=== PATIENT | male | born 1980 | race African-American/Black ===

== ENCOUNTER 2016-08-26 11:19 | Observation (INO) | payer MEDICARE, OTHER ==
[~2016-08-26] VITALS: Ht 180.3 cm; Wt 135.0 kg
[2016-08-26] VITALS (11 sets, daily range): BP systolic 162–222; BP diastolic 92–133; PULSE 68–85; RESP 16–22; TEMP 97.5–98.3; O2SAT 95–100
[~2016-08-26 11:19] MED LIST: Z.0.NO CURRENT MEDS
[2016-08-26] MEDS ORDERED: SODIUM CHLORIDE 0.9% FLUSH 10 ML FLUSH IVF PRN (12:00)
[2016-08-26] MEDS ORDERED: ASPIRIN 81 MG CHEW TAB PO ONE (12:00)
[2016-08-26] MEDS ORDERED: MORPHINE SULFATE 4 MG/ML INJ IV PUSH ONE (12:00)
[2016-08-26] MEDS ORDERED: NITROGLYCERIN 0.4 MG SL 25 TABS/BTL SL SCH (12:00)
--- NOTE | 2016-08-26 12:49 | PD ---
HPI . Chest pain Chief Complaint: Chest Pain Time Seen by Provider: 11:54 Travel History International Travel<30 days: No Contact w/Intl Traveler<30days: No Traveled to known affect area: No History of Present Illness HPI Patient presents with chest pain which started 30 minutes prior to presentation. He states that it awakened him from sleep. He describes a sharp , constant pain. It is associated with nausea. He denies any exacerbating or relieving factors. He states that the pain is 9/10. Patient reports that the pain is the same as pain that he has had in the past when he needed to have stents. He states that he has had stents placed 2. PFSH Past Medical History Hx Anticoagulant Therapy: Yes (plavix) Cardiovascular Problems: Yes (stents ) Myocardial Infarction: Yes Sleep Apnea: Yes Influenza Vaccination: No Past Surgical History Cardiac Surgery: Yes (2 CARDIAC STENTS) Other Surgery: Yes (LOBECTOMY) Social History Alcohol Use: No Tobacco Use: No Substance Use: No Allergies-Medications (Allergen,Severity, Reaction): Coded Allergies: Nitroglycerin (Verified Allergy, Severe, ANAPHYLAXIS, 08/26/16) Hydralazine (Verified Allergy, Intermediate, WHEEZING, 08/26/16) Lyrica (Verified Allergy, Intermediate, WHEEZING, 08/26/16) Reported Meds & Prescriptions Reported Meds & Active Scripts Active Reported Simvastatin 40 Mg Tab 40 Mg PO HS Lisinopril 40 Mg Tab 40 Mg PO DAILY Clonidine (Clonidine HCl) 0.2 Mg Tab 0.2 Mg PO BID Plavix (Clopidogrel Bisulfate) 75 Mg Tab 75 Mg PO DAILY Aspirin Low Dose (Aspirin) 81 Mg Chew 81 Mg CHEW DAILY Coreg (Carvedilol) 25 Mg Tab 25 Mg PO BID Review of Systems Except as stated in HPI: all other systems reviewed are Neg Cardiovascular: Positive: Chest Pain or Discomfort Respiratory: No: Shortness of Breath Gastrointestinal: Positive: Nausea Skin: Positive Other (no diaphoresis) Neurologic: No: Dizziness Physical Exam Narrative GENERAL: Healthy-appearing man in no acute distress. SKIN: Warm and dry. HEAD: Atraumatic. Normocephalic. EYES: Pupils equal and round. ENT: No nasal bleeding or discharge. Mucous membranes pink and moist. NECK: Trachea midline. Neck is supple. CARDIOVASCULAR: Regular rate and rhythm. Heart sounds are normal. RESPIRATORY: No accessory muscle use. Lungs are clear with full air movement throughout. Chest wall is nontender. GASTROINTESTINAL: Abdomen soft, non-tender, nondistended. MUSCULOSKELETAL: No obvious deformities. No edema. NEUROLOGICAL: Awake and alert. No obvious cranial nerve deficits. Motor grossly within normal limits. Normal speech. PSYCHIATRIC: Appropriate mood and affect; insight and judgment normal. Data Data Last Documented VS Vital Signs Date Time Temp Pulse Resp B/P Pulse Ox O2 Delivery O2 Flow Rate FiO2 08/26/16 14:09 71 18 191/125 98 08/26/16 13:05 Nasal Cannula 2 08/26/16 11:31 97.7 Orders Electrocardiogram (08/26/16 11:23) Complete Blood Count With Diff (08/26/16 11:23) Basic Metabolic Panel (Bmp) (08/26/16 11:23) Ckmb (Isoenzyme) Profile (08/26/16 11:23) Troponin I (08/26/16 11:23) Basic Metabolic Panel (Bmp) (08/26/16 11:54) Ckmb (Isoenzyme) Profile (08/26/16 11:54) Magnesium (Mg) (08/26/16 11:54) Prothrombin Time / Inr (Pt) (08/26/16 11:54) Act Partial Throm Time (Ptt) (08/26/16 11:54) Troponin I (08/26/16 11:54) Chest, Single Ap (08/26/16 11:54) Ecg Monitoring (08/26/16 11:54) Bilateral Bp Monitoring (08/26/16 11:54) Iv Access Insert/Monitor (08/26/16 11:54) Oximetry (08/26/16 11:54) Oxygen Administration (08/26/16 11:54) Aspirin Chew (Aspirin Chew) (08/26/16 12:00) Sodium Chloride 0.9% Flush (Ns Flush) (08/26/16 12:00) Nitroglycerin Sl (Nitrostat Sl) (08/26/16 12:00) Morphine Inj (Morphine Inj) (08/26/16 12:00) Metoprolol Tartrate Inj (Lopressor Inj) (08/26/16 12:00) Vascular Access Team Consult PRN (08/26/16 12:31) Vascular Poc Ultrasound (08/26/16 ) Electrocardiogram (08/26/16 ) Morphine Inj (Morphine Inj) (08/26/16 14:00) CKMB (08/26/16 13:10) CKMB% (08/26/16 13:10) Labs Laboratory Tests Test 08/26/16 13:10 White Blood Count 7.9 TH/MM3 Red Blood Count 5.37 MIL/MM3 Hemoglobin 13.5 GM/DL Hematocrit 41.2 % Mean Corpuscular Volume 76.7 FL Mean Corpuscular Hemoglobin 25.2 PG Mean Corpuscular Hemoglobin 32.9 % Concent Red Cell Distribution Width 16.6 % Platelet Count 285 TH/MM3 Mean Platelet Volume 8.0 FL Neutrophils (%) (Auto) 81.3 % Lymphocytes (%) (Auto) 12.1 % Monocytes (%) (Auto) 4.7 % Eosinophils (%) (Auto) 1.4 % Basophils (%) (Auto) 0.5 % Neutrophils # (Auto) 6.5 TH/MM3 Lymphocytes # (Auto) 1.0 TH/MM3 Monocytes # (Auto) 0.4 TH/MM3 Eosinophils # (Auto) 0.1 TH/MM3 Basophils # (Auto) 0.0 TH/MM3 CBC Comment DIFF FINAL Differential Comment Prothrombin Time 9.8 SEC Prothromb Time International 0.9 RATIO Ratio Activated Partial 28.6 SEC Thromboplast Time Sodium Level 139 MEQ/L Potassium Level 4.6 MEQ/L Chloride Level 103 MEQ/L Carbon Dioxide Level 29.1 MEQ/L Anion Gap 7 MEQ/L Blood Urea Nitrogen 16 MG/DL Creatinine 1.76 MG/DL Estimat Glomerular Filtration 53 ML/MIN Rate Random Glucose 117 MG/DL Calcium Level 9.5 MG/DL Magnesium Level 2.1 MG/DL Total Creatine Kinase 243 U/L Creatine Kinase MB 1.8 NG/ML Troponin I LESS THAN 0.02 NG/ML MDM Medical Decision Making Medical Screen Exam Complete: Yes Emergency Medical Condition: Yes Medical Record Reviewed: Yes (patient was evaluated here in 2008. He had an ejection fraction of 60-65% by echo. He had a Holter monitor that showed sinus tachycardia with no ventricular ectopy.) Interpretation(s) EKG shows a sinus rhythm with a rate of 85. He does have a couple of PVCs. His T-wave inversion in I, aVL and V4, V5 and V6. This is new compared to previous EKG. Repeat EKG which shows continued T-wave inversion in I, aVL, V4, V5 and V6. His cardiac enzymes are negative. Patient reports continued pain. I have given him an additional dose of morphine. As stated previously, he is allergic to nitroglycerin. I have admitted the patient to the chest pain center. Differential Diagnosis Differential diagnosis of chest pain includes but is not limited to musculoskeletal pain, pulmonary embolism, acute coronary syndrome, pneumonia, pleurisy Narrative Course Patient presents with chest pain. Unfortunately, he is allergic to nitroglycerin. It causes hives. Therefore, I have ordered aspirin, morphine and metoprolol. He will likely need admission to either the chest pain center or to the floor for further evaluation of his chest pain with associated EKG changes. Critical Care Narrative Aggregate critical care time was minutes. Time to perform other separately billable procedures was not included in the critical care time. My time did not include minutes spent treating any other patients simultaneously or on activities that did not directly contribute to the patient's treatment. The services I provided to this patient were to treat and/or prevent clinically significant deterioration due to ACS I provided critical care services requiring my management, as noted below: Chart data review, documentation time, medication orders and management, vital sign assessments/reviewing monitor data, ordering and reviewing lab tests, ordering and interpreting/reviewing x-rays and diagnostic studies, care of the patient and discussion of the patient with the admitting physicians Diagnosis Primary Impression: Chest pain Qualified Code: R07.9 - Chest pain, unspecified type Admitting Information Admitting Physician Requests: Observation Condition: Stable Giselle Lawson MD Aug 26, 2016 12:49
[2016-08-26] MEDS ORDERED: CORE25TA PO (12:51)
[2016-08-26] MEDS ORDERED: CLON0.2T PO (12:52)
[2016-08-26] MEDS ORDERED: PLAV75TA29 PO (12:52)
[2016-08-26] MEDS ORDERED: ASPI81CH37 CHEW (12:52)
[2016-08-26] MEDS ORDERED: LISI40TA PO (12:53)
[2016-08-26] MEDS ORDERED: SIMV40TA PO (12:53)
[2016-08-26] MEDS: METOPROLOL TARTRATE 5 MG/5 ML VIAL IVS SCH ×3 (13:22→14:08)
[2016-08-26 13:34] LABS: APTT (PATIENT) 28.6 SEC (24.3-30.1); INTERNATIONAL NORMALIZED RATIO 0.9 RATIO; PROTHROMBIN TIME - PATIENT 9.8 SEC (9.8-11.6)
[2016-08-26 13:39] LABS: AUTOMATED NEUTROPHIL # 6.5 TH/MM3 (1.8-7.7); BASOPHIL % 0.5 % (0.0-2.0); EOSINOPHIL # 0.1 TH/MM3 (0-0.4); EOSINOPHIL % 1.4 % (0.0-4.0); HEMATOCRIT 41.2 % (39.0-51.0); HEMO FLAGS DIFF FINAL; LYMPH % 12.1 % (9.0-44.0); MEAN CELL VOLUME 76.7 FL (80.0-100.0); MEAN CORPUSCULAR HEMOGLOBIN 25.2 PG (27.0-34.0); MEAN CORPUSCULAR HGB CONC 32.9 % (32.0-36.0); MONO % 4.7 % (0.0-8.0); NEUT % 81.3 % (16.0-70.0); PLATELET COUNT 285 TH/MM3 (150-450); RED BLOOD COUNT 5.37 MIL/MM3 (4.50-5.90); RED CELL DISTRIBUTION WIDTH 16.6 % (11.6-17.2); WHITE BLOOD COUNT 7.9 TH/MM3 (4.0-11.0)
[2016-08-26 13:42] LABS: ANION GAP 7 MEQ/L (5-15); BICARBONATE 29.1 MEQ/L (21.0-32.0); BLOOD UREA NITROGEN 16 MG/DL (7-18); CHLORIDE 103 MEQ/L (98-107); GLOMERULAR FILTRATION RATE 53 ML/MIN (>89); MAGNESIUM 2.1 MG/DL (1.5-2.5); POTASSIUM 4.6 MEQ/L (3.5-5.1); SODIUM (NA) 139 MEQ/L (136-145)
[2016-08-26 13:57] LABS: CREATINE KINASE 243 U/L (39-308)
[2016-08-26] MEDS: MORPHINE SULFATE 4 MG/ML INJ IV PUSH PRN ×2 (14:02→15:00)
[2016-08-26 14:11] LABS: CKMB 1.8 NG/ML (0.5-3.6)
--- NOTE | 2016-08-26 14:19 | RADRPT ---
EXAM DATE/TIME: 08/26/2016 13:14 [facility] COMPARISON: No previous studies available for comparison. INDICATIONS : Chest Pain MEDICAL HISTORY : Cardiovascular disease. SURGICAL HISTORY : Coronary artery stent. ENCOUNTER: Initial ACUITY: 1 day PAIN SCORE: 8/10 LOCATION: Bilateral chest FINDINGS: A single view of the chest demonstrates the lungs to be symmetrically aerated without evidence of mas s, infiltrate or effusion. The cardiomediastinal contours are unremarkable. Osseous structures are intact. CONCLUSION: No acute disease. Ino Shen MD on August 26, 2016 at 14:15 Board Certified Radiologist. This report was verified electronically.
[2016-08-26] MEDS ORDERED: LIDOCAINE VISCOUS 2% SOLN 15 ML UDC PO ONE (14:45)
[2016-08-26] MEDS ORDERED: ALUMINUM/MAGNESIUM/SIMETH 30 ML CUP PO ONE (14:45)
[2016-08-26] MEDS ORDERED: SODIUM CHLOR 0.9% 1000 ML INJ 1,000 ML IV SCH (14:59)
[2016-08-26] MEDS ORDERED: ACETAMINOPHEN 500 MG CPLT PO PRN (15:00)
[2016-08-26] MEDS ORDERED: ALPRAZolam 0.25 MG TAB PO PRN (15:00)
[2016-08-26] MEDS ORDERED: SODIUM CHLORIDE 0.9% FLUSH 5 ML FLUSH IVF PRN (15:00)
[2016-08-26] MEDS ORDERED: ONDANSETRON HCL 4 MG/2 ML VIAL IV PRN (15:00)
[2016-08-26] MEDS ORDERED: ACETAMINOPHEN/HYDROcodone 325 MG/7.5 MG TAB PO PRN (15:00)
--- NOTE | 2016-08-26 15:14 | HHI.HP ---
HPI Primary Care Physician Unknown Chief Complaint Chest pain History of Present Illness This is a 36-year-old male with history of CAD with stated to cardiac stents with a clinical chest discomfort. Patient states he had 2 stents about 4 years ago. 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 He states that around 10:30 this morning he was awoken with a sharp central chest discomfort similar to the discomfort he had when eating both stents. Initially they last about 20 minutes but would recur. He states the discomfort has been constant for the last 3 hours. Nothing really seems to worsen the discomfort. He was little short of breath initially but that has since resolved. He also was nauseous and diaphoretic. The discomfort radiated down his left arm and towards the left side of his neck. He is visiting from [place]. He states he has been compliant with his medications. States he is allergic to nitroglycerin causing swelling of the tongue and hives. Review of Systems General: Patient denies fevers, chills recent, and recent travel HEENT: Patient denies headache, sore throat, difficulty swallowing. Cardiovascular: Has the chest discomfort as mentioned above. Denies sensation of heart beating rapidly or irregularly. No syncope. He had diaphoresis. Respiratory: He was initially short of breath. Denies inspirational chest discomfort. Denies coughing wheezing or hemoptysis. GI: He was nauseous. Patient denies vomiting, diarrhea, abdominal pain, bloody stools. Musculoskeletal: Patient denies joint pain or edema. Denies calf pain or edema. Neurovascular: Patient denies numbness, tingling, weakness in extremities. Denies headache. Endocrine: Denies polyuria and polydipsia. Hematologic: Denies easy bruising. Skin: Denies rash or itching. Past Family Social History Allergies: Coded Allergies: Nitroglycerin (Verified Allergy, Severe, ANAPHYLAXIS, 08/26/16) Hydralazine (Verified Allergy, Intermediate, WHEEZING, 08/26/16) Lyrica (Verified Allergy, Intermediate, WHEEZING, 08/26/16) Past Medical History CAD with stated 2 stents 4 years ago. 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 TIA about 7 years ago. Hypertension, hyperlipidemia. Denies diabetes. Past Surgical History Cardiac catheterizations 2 with stenting 2. Reported Medications Reported Meds & Active Scripts Active Reported Simvastatin 40 Mg Tab 40 Mg PO HS Lisinopril 40 Mg Tab 40 Mg PO DAILY Clonidine (Clonidine HCl) 0.2 Mg Tab 0.2 Mg PO BID Plavix (Clopidogrel Bisulfate) 75 Mg Tab 75 Mg PO DAILY Aspirin Low Dose (Aspirin) 81 Mg Chew 81 Mg CHEW DAILY Coreg (Carvedilol) 25 Mg Tab 25 Mg PO BID Active Ordered Medications Current Medications Medications (Trade) Dose Ordered Sig/Catia Route Start Time Stop Time Status Last Admin (Morphine Inj) 4 mg Q30M PRN IV PUSH 08/26/16 14:00 08/26/16 14:02 Amlodipine Besylate 10 mg 10 mg STAT ONCE PO 08/26/16 15:00 08/26/16 15:01 UNV (NS 1000 ml Inj) 1,000 ml @ 125 mls/hr Q8H IV 08/26/16 14:59 08/26/16 22:58 (NS Flush) 2 ml UNSCH PRN IVF 08/26/16 15:00 UNV (NS Flush) 2 ml BID IVF 08/26/16 21:00 UNV (Tylenol) 500 mg Q4H PRN PO 08/26/16 15:00 (Ama 7.5-325 Mg) 1 tab Q4H PRN PO 08/26/16 15:00 (Zofran Inj) 4 mg Q6H PRN IV 08/26/16 15:00 UNV (Aspirin) 325 mg DAILY PO 08/27/16 09:00 UNV (Xanax) 0.25 mg Q8H PRN PO 08/26/16 15:00 Family History His mother have CAD and had a bypass. Social History Patient is a lifetime nonsmoker. Denies alcohol or illicit drugs. Physical Exam Vital Signs Vital Signs Date Time Temp Pulse Resp B/P Pulse Ox O2 Delivery O2 Flow Rate FiO2 08/26/16 14:09 71 18 191/125 98 08/26/16 14:07 16 08/26/16 13:26 20 08/26/16 13:05 99 Nasal Cannula 2 08/26/16 11:50 85 16 184/124 95 Room Air 08/26/16 11:31 97.7 85 22 222/133 100 Physical Exam GENERAL: This is a well-nourished, well-developed patient, in no apparent distress. Patient speaks in clear complete sentences. Patient is pleasant. He is obese at 135 kg. HEENT: Head is atraumatic and normocephalic. Neck is supple without lymphadenopathy and trachea is midline. No JVD or carotid bruits. CARDIOVASCULAR: Regular rate and rhythm without murmurs, gallops, or rubs. RESPIRATORY: Clear to auscultation. Breath sounds equal bilaterally. No wheezes , rales, or rhonchi. Chest wall is nontender. No use of accessory muscles. GASTROINTESTINAL: Abdomen is nontender, nondistended. Abdomen soft. No obvious pulsatile mass or bruit. No CVA tenderness. Strong femoral pulses bilaterally. Normal bowel sounds in all quadrants. MUSCULOSKELETAL: Patient is moving upper and lower extremities freely. No calf tenderness or edema, no Homans sign. Strong pulses in upper and lower extremities. NEUROLOGICAL: Patient is alert and oriented. Cranial nerves 2-12 are grossly intact. No focal deficits and speech is clear. SKIN: No rash and turgor is normal. Laboratory Laboratory Tests Test 08/26/16 13:10 White Blood Count 7.9 Red Blood Count 5.37 Hemoglobin 13.5 Hematocrit 41.2 Mean Corpuscular Volume 76.7 Mean Corpuscular Hemoglobin 25.2 Mean Corpuscular Hemoglobin 32.9 Concent Red Cell Distribution Width 16.6 Platelet Count 285 Mean Platelet Volume 8.0 Neutrophils (%) (Auto) 81.3 Lymphocytes (%) (Auto) 12.1 Monocytes (%) (Auto) 4.7 Eosinophils (%) (Auto) 1.4 Basophils (%) (Auto) 0.5 Neutrophils # (Auto) 6.5 Lymphocytes # (Auto) 1.0 Monocytes # (Auto) 0.4 Eosinophils # (Auto) 0.1 Basophils # (Auto) 0.0 CBC Comment DIFF FINAL Differential Comment Prothrombin Time 9.8 Prothromb Time International 0.9 Ratio Activated Partial 28.6 Thromboplast Time Sodium Level 139 Potassium Level 4.6 Chloride Level 103 Carbon Dioxide Level 29.1 Anion Gap 7 Blood Urea Nitrogen 16 Creatinine 1.76 Estimat Glomerular Filtration 53 Rate Random Glucose 117 Calcium Level 9.5 Magnesium Level 2.1 Total Creatine Kinase 243 Creatine Kinase MB 1.8 Troponin I LESS THAN 0.02 Result Diagram: 08/26/16 1310 08/26/16 1310 Imaging Last Impressions Chest X-Ray 08/26/16 1154 Signed Impressions: Service Date/Time: Friday, August 26, 2016 13:14 - CONCLUSION: No acute disease. Ino Shen MD Course Initial EKG is sinus rhythm with inferior T-wave changes as well as lateral ST- T changes. There are PVCs. Assessment and Plan Assessment and Plan * Chest pain: Patient will continue to have serial cardiac enzymes and EKGs for ruling out purposes. He will be seen by Dr. Tl Hunt of cardiology in the chest pain center and at that time further plan will be determined. * CAD: We'll reassess after ruling out with serial cardiac enzymes and EKGs. * Hypertension: Patient's hypertension is uncontrolled. Diastolic was as high as 125. Systolic was over 200. We'll continue his current medications and add amlodipine 10 mg which she had been taking on a prior hospitalization. Denies any allergies to that medication. * Hyperlipidemia: Continue current medication. * Obesity: Patient has been counseled on the importance of diet, exercise, and weight loss. Eren Fischer Aug 26, 2016 15:14
[2016-08-26] MEDS ORDERED: HYDROmorphone HCL 2 MG TAB PO PRN ×2 (16:45→17:00)
[2016-08-26 16:56] LABS: ANION GAP 7 MEQ/L (5-15); BICARBONATE 29.1 MEQ/L (21.0-32.0); BLOOD UREA NITROGEN 17 MG/DL (7-18); CHLORIDE 105 MEQ/L (98-107); GLOMERULAR FILTRATION RATE 55 ML/MIN (>89); POTASSIUM 4.1 MEQ/L (3.5-5.1); SODIUM (NA) 141 MEQ/L (136-145)
[2016-08-26 16:59] LABS: CREATINE KINASE 181 U/L (39-308)
[2016-08-26] MEDS ORDERED: PILL SPLITTER OTHER PRN (17:00)
[2016-08-26 17:12] LABS: CKMB 1.7 NG/ML (0.5-3.6)
[2016-08-26 19:39] LABS: CREATINE KINASE 190 U/L (39-308)
[2016-08-26] MEDS ORDERED: IODIXANOL 320 MG/ML 10 ML VIAL (for Rad CT) IV ONE (19:44)
[2016-08-26] MEDS: cloNIDine HCL 0.2 MG TAB PO PRN (19:48)
[2016-08-26 19:51] LABS: CKMB 1.4 NG/ML (0.5-3.6)
--- NOTE | 2016-08-26 19:53 | RADRPT ---
EXAM DATE/TIME: 08/26/2016 19:08 [facility] COMPARISON: CHEST SINGLE AP, August 26, 2016, 13:14. INDICATIONS : Mid chest pain starting today. IV CONTRAST: 50 cc Visipaque (iodixanol) IV RADIATION DOSE: 25.1 CTDIvol (mGy) MEDICAL HISTORY : Cardiovascular disease. SURGICAL HISTORY : Lobectomy. ENCOUNTER: Initial ACUITY: 1 day PAIN SCALE: 9/10 LOCATION: chest TECHNIQUE: Volumetric scanning of the chest was performed using a pulmonary embolism protocol MIP images were re constructed. Using automated exposure control and adjustment of the mA and/or kV according to patien t size, radiation dose was kept as low as reasonably achievable to obtain optimal diagnostic quality images. FINDINGS: PULMONARY ARTERIES: No filling defects are seen in the pulmonary arteries through the segmental level. LUNGS: There is minimal basilar atelectasis. There are tiny bilateral parenchymal lung nodules including a 5 mm nodule in the anterior left upper lobe and a 5 mm nodule in the anterolateral right lung base. PLEURAE: There is no pleural thickening or pleural effusion. MEDIASTINUM: There is good visualization of the great vessels of the middle mediastinum. No evidence of mediastin al or hilar adenopathy/mass. MUSCULOSKELETAL: Within normal limits for patient age. MISCELLANEOUS: Small low density lesion in the right lobe of the liver is likely a small cyst or hemangioma. CONCLUSION: No evidence of pulmonary embolism. Small bilateral parenchymal lung nodules. Ideally, followup with [address] to document stability or resolution would be suggested. Ino Shen MD on August 26, 2016 at 19:46 Board Certified Radiologist. This report was verified electronically.
[2016-08-26] MEDS: SODIUM CHLORIDE 0.9% FLUSH 5 ML FLUSH IVF SCH (20:26)
[2016-08-26] MEDS: HYDROmorphone HCL PF 2 MG/ML VIAL IV PRN (20:27)
[2016-08-27] VITALS (7 sets, daily range): BP systolic 119–194; BP diastolic 69–116; PULSE 67–92; RESP 17–22; TEMP 97.8–98.6; O2SAT 93–97
[2016-08-27] MEDS: HYDROmorphone HCL PF 2 MG/ML VIAL IV PRN ×4 (00:14→10:51)
[2016-08-27] MEDS: cloNIDine HCL 0.2 MG TAB PO PRN ×2 (00:15→04:27)
[2016-08-27] MEDS: SODIUM CHLORIDE 0.9% FLUSH 5 ML FLUSH IVF SCH (07:54)
[2016-08-27] MEDS ORDERED: CLOPIDOGREL 75 MG TAB PO SCH (09:00)
[2016-08-27] MEDS ORDERED: ASPIRIN 325 MG TAB PO SCH (09:00)
[2016-08-27] MEDS ORDERED: cloNIDine HCL 0.2 MG TAB PO SCH (09:00)
[2016-08-27] MEDS ORDERED: LISINOPRIL 20 MG TAB PO SCH (09:00)
[2016-08-27] MEDS ORDERED: CARVEDILOL 12.5 MG TAB PO SCH (09:00)
[2016-08-27] MEDS ORDERED: REGADENOSON INJ 0.4 MG/5 ML SYR ONE (09:46)
--- NOTE | 2016-08-27 11:16 | RADRPT ---
EXAM DATE/TIME: 08/27/2016 09:05 [facility] COMPARISON: No previous studies available for comparison. INDICATIONS : Mid chest pain for one day. Angina. Coronary artery disease. DOSE: 35 mCi Tc99m Myoview at stress. 11 mCi Tc99m Myoview at rest. 0.4 mg Lexiscan STRESS SYMPTOMS: Chest tightness. EJECTION FRACTION: 34% MEDICAL HISTORY : Hypertension. SURGICAL HISTORY : Coronary artery stent. Lobectomy. ENCOUNTER: Initial ACUITY: 1 day PAIN SCALE: 7/10 LOCATION: Midsternal chest TECHNIQUE: The patient underwent pharmacologic stress with infusion of prescribed dose. Continuous ECG tracing was monitored during stress. Gated SPECT imaging was performed after stress and conventional SPECT i maging was performed at rest. The examination was performed on a SPECT/CT scanner, both attenuation and non-corrected datasets were reviewed. FINDINGS: DISTRIBUTION: The maximum perfused segment at stress is in the septal wall. PERFUSION STUDY: The pattern of perfusion at stress and rest is very similar. No evidence of redistribution. Mild de creased activity in the basal lateral wall correlates with attenuation defects seen on the raw data i mages. No discrete perfusion defects seen. GATED STUDY: There is global hypokinesia. No dyskinetic segments seen. Calculated ejection fraction is 34%. CONCLUSION: 1. No evidence of stress-induced ischemia. 2. Global hypokinesia with 34% ejection fraction. RISK CATEGORY: Intermediate (1-3% Annual Mortality Rate) David Shah MD on August 27, 2016 at 11:03 Board Certified Radiologist. This report was verified electronically.
[2016-08-27] MEDS ORDERED: AMLO10 PO (11:28)
--- NOTE | 2016-08-27 11:29 | HHI.DCPOC ---
Discharge Care Plan Diagnosis: (1) Chest pain (2) CAD (coronary artery disease) (3) H/O heart artery stent (4) Hypertension (5) Hyperlipidemia Goals to Promote Your Health * To prevent worsening of your condition and complications * To maintain your health at the optimal level Directions to Meet Your Goals Take your medications as prescribed Follow your dietary instruction Follow activity as directed Keep your appointments as scheduled Take your immunizations and boosters as scheduled If your symptoms worsen call your PCP, if no PCP go to Urgent Care Center or Emergency Room Smoking is Dangerous to Your Health. Avoid second hand smoke Call the 24-hour hour crisis hotline for domestic abuse at Eren Fischer Aug 27, 2016 11:29
--- NOTE | 2016-08-27 13:46 | EKG ---
Date Performed: 08/26/2016 Time Performed: 19:37:56 PTAGE: 36 years EKG: Sinus rhythm WITH OCCASIONAL VENTRICULAR PREMATURE COMPLEXES POSSIBLE RIGHT ATRIAL ENLARGEMENT LEFT ATRIAL ENLARG EMENT LEFT VENTRICULAR HYPERTROPHY AND ST-T CHANGE INFERIOR MYOCARDIAL INFARCTION ABNORMAL ECG PREVIOUS TRACING : 08/26/2016 16.53 Since previous tracing, no significant change noted DOCTOR: Tl Hunt Interpretating Date/Time 08/27/2016 13:44:56
--- NOTE | 2016-08-27 13:46 | EKG ---
Date Performed: 08/26/2016 Time Performed: 16:53:47 PTAGE: 36 years EKG: Sinus rhythm LEFT ATRIAL ENLARGEMENT LEFT VENTRICULAR HYPERTROPHY AND ST-T CHANGE INFERIOR MYOCARDIAL INFARCTION ABNORMAL ECG PREVIOUS TRACING : 08/26/2016 14.18 Since previous tracing, no significant change noted DOCTOR: Tl Hunt Interpretating Date/Time 08/27/2016 13:45:29
--- NOTE | 2016-08-27 13:47 | EKG ---
Date Performed: 08/26/2016 Time Performed: 14:18:50 PTAGE: 36 years EKG: Sinus rhythm WITH OCCASIONAL VENTRICULAR PREMATURE COMPLEXES POSSIBLE LEFT ATRIAL ENLARGEMENT LEFT VENTRICULAR HY PERTROPHY AND ST-T CHANGE INFERIOR MYOCARDIAL INFARCTION ABNORMAL ECG PREVIOUS TRACING : 08/26/2016 11.25 Since previous tracing, no significant change noted DOCTOR: Tl Hunt Interpretating Date/Time 08/27/2016 13:45:43
--- NOTE | 2016-08-27 13:47 | EKG ---
Date Performed: 08/26/2016 Time Performed: 11:25:39 PTAGE: 36 years EKG: Sinus rhythm WITH OCCASIONAL VENTRICULAR PREMATURE COMPLEXES POSSIBLE RIGHT ATRIAL ENLARGEMENT LEFT ATRIAL ENLARG EMENT LEFT VENTRICULAR HYPERTROPHY AND ST-T CHANGE INFERIOR MYOCARDIAL INFARCTION ABNORMAL ECG INTERP RETATION BASED ON A DEFAULT AGE OF 40 YEARS PREVIOUS TRACING : 07/24/2008 16.35 Since previous tracing, no significant change noted DOCTOR: Tl Hunt Interpretating Date/Time 08/27/2016 13:45:55
--- NOTE | 2016-08-27 13:50 | TR ---
Date Performed: 08/27/2016 Time Performed: 09:46:31 DOCTOR: Tl Hunt DRUG LIST: CLINICAL HISTORY: CHEST PAIN REASON FOR TEST: REASON FOR ENDING: OBSERVATION: CONCLUSION: Lexiscan stress test was performed under standard four minute protocol. Radionuclid e was injected one minute prior to ending the test. No electrocardiographic abormalities were present to suggest ischemia. Nuclear imaging and interpretation are pending. COMMENTS:
[2016-08-27] MEDS ORDERED: PRAVASTATIN SOD 80 MG TAB PO SCH (21:00)
== END 2016-08-27 13:21 | disposition home or self-care (01) ==
LOC: NEPC 11:19 → NEDA 14:31 → NEPHCDU 16:28
PROVIDERS: ADMIT Internal Medicine Cardiovascular Disease; ATTEND Internal Medicine Cardiovascular Disease
DX: R07.9 Chest pain, unspecified (principal); I25.10 Atherosclerotic heart disease of native coronary artery without angina pectoris; I10 Essential (primary) hypertension; E78.5 Hyperlipidemia, unspecified; E66.9 Obesity, unspecified; I25.2 Old myocardial infarction; Z68.41 Body mass index [BMI] 40.0-44.9, adult; Z95.5 Presence of coronary angioplasty implant and graft; Z88.8 Allergy status to other drugs, medicaments and biological substances; Z86.73 Personal history of transient ischemic attack (TIA), and cerebral infarction without residual deficits; Z79.02 Long term (current) use of antithrombotics/antiplatelets; Z79.82 Long term (current) use of aspirin
CPT/HCPCS: 71010; 71275; 78452; 80048; 82550; 82552; 83735; 84484; 85025; 85379; 85610; 85730; 93005; 93017; A9502; G0378; J1170; J2270; J2405; J2785; J7030; Q9967; 96374; 96375; 96376